=== PATIENT | female | born 1940 | race Caucasian/White ===

== ENCOUNTER → 2019-06-25 06:45 | Outpatient (CLI) | payer MEDICARE, SELFPAY ==
--- NOTE | 2019-06-25 06:50 | ECHOCS_ITS ---
Reason For Study: Atypical Chest Pain Procedure This was a 2D Doppler, Color Flow transthoracic echocardiogram. Contrast injection was performed. The study was technically difficult. Exam performed in department. Left Ventricle Normal LV size. The estimated ejection fraction is 55 %. No evidence for diastolic dysfunction. No regional wall motion abnormalities noted. Right Ventricle Normal RV size. Normal systolic function. Atria Normal left atrium. Normal right atrium. No doppler evidence for ASD. Mitral Valve There is no mitral valve stenosis. Trivial mitral valve insufficiency. Tricuspid Valve There is no tricuspid stenosis. Unable to estimate RV systolic pressure due to insufficient tricuspid regurgitant envelope. Trivial tricuspid valve insufficiency. Aortic Valve Trisinus/trileaflet aortic valve. There is no aortic stenosis. No aortic valve insufficiency. Pulmonic Valve There is no pulmonic valvular stenosis. No pulmonic valve insufficiency. Great Vessels Normal aortic root. Pericardium/Pleural No pericardial effusion. Medication Diluted definity 2ml given slow IV push to enhance endocardial definition. MMode/2D Measurements & Calculations LVIDd: 4.2 cm IVSd: 0.79 cm LA dimension: 3.3 cm LVIDs: 2.3 cm LVPWd: 1.1 cm FS: 44.1 % LAV(MOD-bp): 63.8 ml LA A4 area: 22.4 cm2 RA A4 area: 12.9 cm2 LAV(MOD-bp) Indexed: 34.7 ml/m2 LAV(MOD-sp2): 55.8 ml LAV(MOD-sp4): 70.7 ml Time Measurements MV dec time: 0.21 sec Doppler Measurements & Calculations MV E max rigo: 86.9 cm/sec Lat Peak E' Rigo: 6.5 cm/sec Med Peak E' Rigo: 5.8 cm/sec MV A max rigo: 116.4 cm/sec E/E' lat: 13.5 E/E' med: 15.0 MV E/A: 0.75 MV V2 max: 129.0 cm/sec MV P1/2t max rigo: 82.8 cm/sec Ao V2 max: 120.8 cm/sec MV max P.7 mmHg MV P1/2t: 97.9 msec Ao max P.8 mmHg MV V2 mean: 66.5 cm/sec MV dec slope: 247.8 cm/sec2 MV mean P.1 mmHg MV V2 VTI: 30.0 cm MVA(P1/2t): 2.2 cm2 LV V1 max: 95.8 cm/sec PA V2 max: 96.3 cm/sec TR max rigo: 222.7 cm/sec LV V1 max P.7 mmHg TR max P.8 mmHg Interpretation Summary The study was technically difficult. Diluted definity 2ml given slow IV push to enhance endocardial definition. The estimated ejection fraction is 55 %. No evidence for diastolic dysfunction. Trivial mitral valve insufficiency. The study was technically difficult. Ordering Physician: Jamila Mcdonald Referring Physician: Jamila Mcdonald Performed By: Robert Villalobos RCS
--- NOTE | 2019-06-25 14:28 | STRESSREP_ITS ---
Stress Test Report Date: 06/25/2019 Procedure: Pharmacologic stress nuclear imaging study Indications: Chest pain Consent: Per the patient Procedure: The patient underwent pharmacologic (Regadenoson) evaluation with a peak heart rate of 94 beats per minute (65 %predicted maximal heart rate) and a peak blood pressure of 104/60 mmHg. The baseline ECG demonstrated sinus rhythm. EKG during lexiscan infusion revealed no significant ischemic changes. EKG post infusion revealed no significant ischemic changes [There were no cardiac dysrhythmias pretest, during pharmacologic infusion, or recovery]. [There was no complaint of chest discomfort during pharmacologic infusion or recovery]. The examination was discontinued secondary to completion of protocol. Impression: 1. Lexiscan stress test test is negative for Lexiscan infusion induced EKG changes of ischemia. 2. Lexiscan stress test test is negative for Lexiscan infusion induced chest pain. 3. Results of the nuclear portion of the test is as below Myocardial perfusion imaging study: Technique: The patient was injected with 11 millicuries of technetium 99m Cardiolite and subsequently rest SPECT Cardiolite nuclear imaging was obtained in the horizontal long, vertical long, and short axis views. The patient underwent pharmacologic (Regadenoson) evaluation. Please see above for details. The patient was injected with 35 millicuries of technetium 99m Cardiolite and subsequently stress SPECT Cardiolite nuclear imaging was obtained in the horizontal long, vertical long, and short axis views. A gated Cardiolite study at peak stress was obtained. Interpretation: Rest and stress SPECT Cardiolite nuclear imaging status post realignment, normalization, and attenuation correction demonstrate no large fixed or reversible defects suggestive of significant ischemia or infarction. Gated images reveal no significant regional wall motion abnormalities. The reported LVEF is 71%. Impression: 1. There is no evidence of significant ischemia or infarction. 2. Estimated ejection fraction is 71%. This note was generated with [employer] software. It may contain incorrect words, spelling, and punctuation that were not noted in checking the note before signing.
== END ==
PROVIDERS: Family Provider Internal Medicine; PCP Internal Medicine; Referring Provider Internal Medicine; Visit Provider Internal Medicine
DX: R07.89 Other chest pain (principal)
CPT/HCPCS: 78452; 93017; 93306; A9500; Q9957; A4216; C8929; J2785

== ENCOUNTER → 2019-09-23 14:15 | Outpatient (CLI) | payer MEDICARE, SELFPAY ==
[2019-09-23 13:12] VITALS: BMI 35.6
--- NOTE | 2019-09-23 14:17 | RAD_ITS ---
STUDY: X-RAY CHEST REASON FOR EXAM: Female, 79 years old. Shortness of breath. TECHNIQUE: Frontal and lateral views of the chest. COMPARISON: None. FINDINGS: Low-volume inspiration. There is no demonstrated pleural abnormality. Borderline cardiomegaly. Normal mediastinum and naya. Normal visualized pulmonary arteries. Normal visualized aortic arch and descending thoracic aorta. Thoracolumbar spondylosis. Normal visualized ribs, clavicles, and shoulders. There is no demonstrated abnormality of the visualized soft tissue structures of the upper abdomen. RAD/Chest PA and Lateral IMPRESSION: No active or acute cardiopulmonary disease. Electronically Signed: Tyrell Aguero MD at 16:48 EST , Service support ,
== END ==
PROVIDERS: PCP Internal Medicine; Referring Provider Internal Medicine Cardiovascular Disease; Visit Provider Internal Medicine Cardiovascular Disease
DX: R06.02 Shortness of breath (principal)
CPT/HCPCS: 71046

== ENCOUNTER → 2019-10-12 08:46 | Outpatient (CLI) | payer MEDICARE, SELFPAY ==
[2019-09-23 13:12] VITALS: BMI 35.6
--- NOTE | 2019-10-12 13:29 | PFTCOMP ---
COMPLETE PULMONARY FUNCTION TEST INTERPRETATION Brief HPI: Patient is a 79 year old female, currently under the care of Dr. Oliva, who presents to [facility] for complete pulmonary function tests secondary to diagnosis of dyspnea. Respiratory therapist reports good effort and reproducible results. Interpretation: Forced expiration spirometry shows a mild large airways obstructive ventilatory defect with an FEV1 of 101% predicted. There is a significant bronchodilator response in FEV1 by strict ATS criteria. Spirograms are of good quality and plateau slowly, indicating slowly emptying areas of the lungs. The respiratory flow volume loop shows decreased expiratory flow rates at high lung volumes consistent with small airways obstruction. Lung volumes by body plethysmography show a normal total lung capacity at 3.98 L, 96% predicted. All other lung volumes are within normal limits. Diffusion capacity by carbon monoxide is decreased at 46% predicted. The airway resistance is normal. No previous pulmonary function tests were available for review. Impression: Fully reversible mild large airways obstructive ventilatory defect with a reduction in diffusion capacity that is out of proportion. Consideration for asthma with pulmonary vascular disorder given current pattern.
== END ==
PROVIDERS: PCP Internal Medicine; Referring Provider Internal Medicine Cardiovascular Disease; Visit Provider Internal Medicine Cardiovascular Disease
DX: R06.02 Shortness of breath (principal)
CPT/HCPCS: 94060; 94726; 94729

== ENCOUNTER → 2025-08-24 | Outpatient (CLI) | payer MEDICARE, SELFPAY ==
[2025-08-24 13:19] LABS: Anion Gap 10 (5-15); BUN 18 mg/dL (4-19); BUN/Creat Ratio 25.1 RATIO (10-20); Calcium,Total 9.3 mg/dL (7.6-11.0); Carbon Dioxide 23.9 mmol/L (21.0-32.0); Chloride 103 mmol/L (98-108); Cholesterol 150 mg/dL (<=200); Glucose 234 mg/dL (70-99); Low Density Lipoprotein Calc. 85 mg/dL; Potassium 4.2 mmol/L (3.3-5.1); Triglycerides 102 mg/dL; Very Low Density Lipoprotein 20 mg/dL (5-40); cholesterol:hdl ratio screen 3.24
== END | disposition home or self-care (01) ==
LOC: LAB 11:37
PROVIDERS: PCP Family Medicine; Referring Provider Internal Medicine Cardiovascular Disease; Visit Provider Internal Medicine Cardiovascular Disease
DX: I10 Essential (primary) hypertension (principal); I48.91 Unspecified atrial fibrillation; E11.65 Type 2 diabetes mellitus with hyperglycemia; Z79.4 Long term (current) use of insulin; E66.3 Overweight
CPT/HCPCS: 36415; 80048; 80061